=== PATIENT | male | born 1960 | race Caucasian/White ===

== ENCOUNTER 2019-10-14 09:31 | Emergency (ER) | payer OTHER ==
--- NOTE | 2019-10-14 09:43 | ED ---
Chest Pain HPI - General Chief Complaint: Chest Pain Stated Complaint: chest pain Time Seen by Provider: 10/14/19 09:31 Source: patient, EMS, RN notes reviewed, old records reviewed Mode of arrival: EMS Limitations: no limitations - History of Present Illness Initial Comments: This is a 51-year-old male with a history of hypertension history of DC with stents also history of hemorrhagic CVA who presents with complaints of 2-3 days of left-sided sharp chest pain tearing in nature also currently 6/10 in severity he states it does get worse it does get somewhat worse with certain positional changes. States also his blood pressure is been elevated his been taking his medications. No recent changes in the blood pressure medication. No fevers chills cough sweats or other symptoms at this time he is a former smoker. MD Complaint: chest pain - Related Data Home Medications Medication Instructions Recorded Confirmed Aspirin EC [Ecotrin Low Dose] 81 mg PO DAILY 10/14/19 10/14/19 Atorvastatin [Lipitor] 40 mg PO HS 10/14/19 10/14/19 Carvedilol [Coreg] 50 mg PO BID 10/14/19 10/14/19 Furosemide [Lasix] 20 mg PO DAILY 10/14/19 10/14/19 Pantoprazole Sodium [Protonix] 40 mg PO DAILY 10/14/19 10/14/19 Spironolactone [Aldactone] 25 mg PO DAILY 10/14/19 10/14/19 Valsartan 320 mg PO DAILY 10/14/19 10/14/19 hydrALAZINE HCL [Apresoline] 25 mg PO TID 10/14/19 10/14/19 Allergies Allergy/AdvReac Type Severity Reaction Status Date / Time No Known Allergies Allergy Verified 10/14/19 10:39 Review of Systems ROS Statement: Those systems with pertinent positive or pertinent negative responses have been documented in the HPI. ROS Other: All systems not noted in ROS Statement are negative. 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 Absent: scleral icterus, conjunctival injection, periorbital swelling ENT exam: Present: normal exam, mucous membranes moist Neck exam: Present: normal inspection, full ROM, other (No stridor JVD or bruits). Absent: tenderness, meningismus, lymphadenopathy Respiratory exam: Present: normal lung sounds bilaterally, chest wall tenderness (Tenderness palpation on the left costal sternal margin the patient states this is different than the other pain he complains of there is no step-off or crepitation.). Absent: respiratory distress, wheezes, rales, rhonchi, stridor Cardiovascular Exam: Present: normal rhythm, tachycardia, normal heart sounds. Absent: systolic murmur, diastolic murmur, rubs, gallop, clicks GI/Abdominal exam: Present: soft, normal bowel sounds. Absent: distended, tenderness, guarding, rebound, rigid, bruit, pulsatile mass Extremities exam: Present: normal inspection, full ROM, normal capillary refill. Absent: tenderness, pedal edema, joint swelling, calf tenderness Back exam: Present: normal inspection Neurological exam: Present: alert, oriented X3, CN II-XII intact Psychiatric exam: Present: normal affect, normal mood Skin exam: Present: warm, dry, intact, normal color. Absent: rash Course Vital Signs 10/14/19 10/14/19 10/14/19 09:32 09:34 09:38 Temperature 98.7 F Pulse Rate 114 H 122 H Respiratory 18 20 Rate Blood Pressure 224/127 O2 Sat by Pulse 96 98 Oximetry 10/14/19 10/14/19 10/14/19 10:00 10:28 10:30 Temperature Pulse Rate 99 92 Respiratory 20 Rate Blood Pressure 224/127 178/128 178/128 O2 Sat by Pulse 96 97 Oximetry 10/14/19 10/14/19 10/14/19 11:00 11:30 11:58 Temperature Pulse Rate 98 96 89 Respiratory 20 20 Rate Blood Pressure 209/128 202/124 185/115 O2 Sat by Pulse 97 96 96 Oximetry 10/14/19 10/14/19 10/14/19 11:59 12:00 12:11 Temperature Pulse Rate 86 89 Respiratory 18 Rate Blood Pressure 185/115 185/115 164/107 O2 Sat by Pulse 98 96 Oximetry 10/14/19 10/14/19 10/14/19 12:30 12:43 13:00 Temperature Pulse Rate 98 98 105 H Respiratory 18 Rate Blood Pressure 164/107 166/95 166/95 O2 Sat by Pulse 95 98 95 Oximetry 10/14/19 13:09 Temperature Pulse Rate 105 H Respiratory Rate Blood Pressure 166/95 O2 Sat by Pulse 95 Oximetry Chest Pain MDM - MDM I did review the imaging and report no acute findings. No change in the status of the aorta. Patient did get improvement with a blood pressure medications as well as pain control. Patient's presentation consistent with chest wall pain Disposition Clinical Impression: Costochondritis, Chest wall syndrome, Hypertension Disposition: HOME SELF-CARE Condition: Good Instructions (If sedation given, give patient instructions): Costochondritis (ED), Chest Pain (ED), Hypertension (ED) Is patient prescribed a controlled substance at d/c from ED?: No Referrals: [facility],Clinic [Primary Care Provider] - 1-2 days
[2019-10-14 10:00] LABS: Basophils % (A) 0 %; Eosinophils # (A) 0.1 k/uL (0-0.7); Eosinophils % (A) 1 %; HCT 48.8 % (39.0-53.0); HGB 16.6 gm/dL (13.0-17.5); Lymphocytes # (A) 1.8 k/uL (1.0-4.8); Lymphocytes % (A) 23 %; MCH 31.4 pg (25.0-35.0); MCHC 34.1 g/dL (31.0-37.0); MCV 92.2 fL (80.0-100.0); Monocytes # (A) 0.8 k/uL (0-1.0); Monocytes % (A) 10 %; Neutrophils % (A) 63 %; Platelet Count 134 k/uL (150-450); RBC 5.29 m/uL (4.30-5.90); RDW 13.9 % (11.5-15.5); WBC 7.9 k/uL (3.8-10.6)
[2019-10-14 10:18] LABS: ALT 92 U/L (4-49); AST 77 U/L (17-59); African American GFR (CKD) >90 (>60 ml/min/1.73 sqM); Albumin 4.1 g/dL (3.5-5.0); Alkaline Phosphatase 81 U/L (38-126); Anion Gap 8 mmol/L; Blood Urea Nitrogen 20 mg/dL (9-20); Calcium 9.2 mg/dL (8.4-10.2); Carbon Dioxide 22 mmol/L (22-30); Chloride 101 mmol/L (98-107); Creatine Kinase 215 U/L (55-170); Glucose 115 mg/dL (74-99); Magnesium 1.6 mg/dL (1.6-2.3); Non-African American GFR(CKD) 83 (>60 ml/min/1.73 sqM); Sodium 131 mmol/L (137-145); Total Bilirubin 1.2 mg/dL (0.2-1.3); Total Protein 7.7 g/dL (6.3-8.2)
--- NOTE | 2019-10-14 10:20 | XR ---
EXAMINATION TYPE: XR chest 1V portable DATE OF EXAM: 10/14/2019 HISTORY: Shortness of breath. COMPARISON: None. TECHNIQUE: Single view of the chest is submitted. FINDINGS: Demonstrated are scattered senescent parenchymal change. There is no evidence for focal infiltrate. The heart is stable. Hilar and mediastinal structures are within normal limits. Degenerative changes are seen of the dorsal spine. IMPRESSION: 1. Chronic changes without evidence for acute pulmonary disease.
[2019-10-14 10:30] LABS: Potassium 5.8 mmol/L (3.5-5.1)
[2019-10-14] MEDS ORDERED: METOPROLOL TARTRATE 5 MG/5 ML VIAL IVP STA (10:30)
[2019-10-14 10:31] LABS: D-Dimer 0.35 mg/L FEU (<0.60); Partial Thromboplastin Time 23.7 sec (22.0-30.0)
--- NOTE | 2019-10-14 10:34 | CT ---
EXAMINATION TYPE: CT angio thor/abd pel aorta DATE OF EXAM: 10/14/2019 COMPARISON: None HISTORY: Chest pain, possible dissection CT DLP: 1519.5 mGycm CONTRAST: CTA thoracic and abdominal aorta with 3-D reconstruction is performed and without and with IV Contras t, patient injected with 100 mL of Isovue 370. Contrast CTA of the thoracic and abdominal aorta was performed from the lung apex through the base of the pelvis. 3-D reconstruction imaging obtained at a separate workstation. CT Chest: THORACIC AORTA: Thoracic aortic aneurysm measuring 5 cm AP dimension. No dissection or mediastinal he matoma. Mild atheromatous changes are seen. LUNGS: The lungs are clear and free of infiltrate or atelectasis. No pulmonary nodule or mass is det ected. No pleural effusion or CT evidence of interstitial lung disease. MEDIASTINUM: The heart is not enlarged. No evidence for mediastinal mass or adenopathy. HILAR STRUCTURES: No evidence for mass. No hilar adenopathy is appreciated. OTHER: No significant abnormality. CONTRAST CT ABDOMEN AND PELVIS ABDOMINAL AORTA: No evidence for abdominal aortic aneurysm. No dissection. Iliac vessels are symmet jayden and patent. LIVER/GB- No significant abnormality is seen. Mild hepatic steatosis. PANCREAS- No significant abnormality is seen. SPLEEN- No significant abnormality is seen. ADRENALS- No significant abnormality is seen. KIDNEYS/BLADDER-renal cystic changes identified. BOWEL- No Significant abnormality GENITAL ORGANS: No gross abnormality seen. LYMPH NODES- No greater than 1cm abdominal or pelvic lymph nodes are appreciated. OSSEOUS STRUCTURES- No significant abnormality is seen. OTHER- No significant abnormality is seen. IMPRESSION- No evidence for dissection. Ascending thoracic aortic aneurysm.
[2019-10-14] MEDS ORDERED: hydrALAZINE HCL 20 MG/ML 1 ML VIAL IVP STA ×2 (11:11→12:01)
[2019-10-14] MEDS ORDERED: KETOROLAC 30 MG/ML 1 ML VIAL IVP STA (11:11)
[2019-10-14 12:00] VITALS: RESP 18
[2019-10-14 13:29] VITALS: BP 160/103; PULSE 107; TEMP 97.9
== END 2019-10-14 13:35 | disposition home or self-care (01) ==
LOC: EC 09:31
DX: M94.0 Chondrocostal junction syndrome [Tietze] (principal); I10 Essential (primary) hypertension; I25.2 Old myocardial infarction; Z79.82 Long term (current) use of aspirin; Z79.02 Long term (current) use of antithrombotics/antiplatelets; Z79.899 Other long term (current) drug therapy; Z87.891 Personal history of nicotine dependence; Z86.73 Personal history of transient ischemic attack (TIA), and cerebral infarction without residual deficits; Z95.5 Presence of coronary angioplasty implant and graft
CPT/HCPCS: 36415; 93005; 85379; 83880; 80053; 82550; 83690; 83735; 84484; 85025; 85610; 85730; 71045; 71275; 74174; 99285; 96374; 96375 ×2; 96376; J0360; J1885; Q9967

== ENCOUNTER 2021-08-05 12:47 | Emergency (ER) | payer OTHER ==
[2021-08-05 14:35] LABS: Amphetamine Screen,Urine Not Detected (NotDetected); Barbiturate Screen,Urine Not Detected (NotDetected); Benzodiazepines Screen,Urine Not Detected (NotDetected); Cocaine Screen,Urine Not Detected (NotDetected); Methadone Screen, Urine Not Detected (NotDetected); Opiate Screen,Urine Not Detected (NotDetected); Oxycodone Screen, Urine Not Detected (NotDetected); Phencyclidine Screen,Urine Not Detected (NotDetected); Tricyclic Antidepressant,Urine Not Detected (NotDetected); Urn Cannabinoid Scrn Detected (NotDetected)
--- NOTE | 2021-08-05 14:55 | ED ---
Psych HPI <Rafael Alicea - Last Filed: 08/05/21 16:19> - General Source: patient, RN notes reviewed Mode of arrival: ambulatory Limitations: no limitations <Antonio Lees - Last Filed: 08/05/21 16:55> - General Chief Complaint: Psychiatric Symptoms Stated Complaint: Mental health Time Seen by Provider: 08/05/21 12:52 - History of Present Illness Initial Comments: 61-year-old male presents emergency Department with police for psychiatric evaluation. Patient states he severely depressed, suicidal. He has not attempted to harm himself in any way. Patient states this point where he does not want to live anymore. Patient does not currently see anybody for this. Patient states he needs help. Denies any illicit drug use or alcohol abuse. Patient has no physical complaints he does take medications for hypertension. (Antonio Lees) - Related Data Home Medications Medication Instructions Recorded Confirmed Aspirin EC [Ecotrin Low Dose] 81 mg PO DAILY 10/14/19 08/05/21 Atorvastatin [Lipitor] 40 mg PO HS 10/14/19 08/05/21 Carvedilol [Coreg] 50 mg PO BID 10/14/19 08/05/21 Furosemide [Lasix] 20 mg PO DAILY 10/14/19 08/05/21 Pantoprazole Sodium [Protonix] 40 mg PO DAILY 10/14/19 08/05/21 Spironolactone [Aldactone] 25 mg PO DAILY 10/14/19 08/05/21 Valsartan 320 mg PO DAILY 10/14/19 08/05/21 hydrALAZINE HCL [Apresoline] 25 mg PO TID 10/14/19 08/05/21 Allergies Allergy/AdvReac Type Severity Reaction Status Date / Time No Known Allergies Allergy Verified 08/05/21 15:57 Review of Systems ROS Other: All systems not noted in ROS Statement are negative. <Rafael Alicea - Last Filed: 08/05/21 16:19> ROS Other: All systems not noted in ROS Statement are negative. <Antonio Lees - Last Filed: 08/05/21 16:55> ROS Statement: Those systems with pertinent positive or pertinent negative responses have been documented in the HPI. 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 Absent: scleral icterus, conjunctival injection, periorbital swelling ENT exam: Present: normal exam, mucous membranes moist Neck exam: Present: normal inspection, full ROM. Absent: tenderness, meningismus, lymphadenopathy Respiratory exam: Present: normal lung sounds bilaterally. Absent: respiratory distress, wheezes, rales, rhonchi, stridor Cardiovascular Exam: Present: regular rate, normal rhythm, normal heart sounds. Absent: systolic murmur, diastolic murmur, rubs, gallop, clicks Neurological exam: Present: alert, oriented X3, CN II-XII intact Psychiatric exam: Present: depressed, suicidal ideation <Antonio Lees - Last Filed: 08/05/21 16:55> Course Vital Signs 08/05/21 12:48 Temperature 97.9 F Pulse Rate 63 Respiratory 18 Rate Blood Pressure 150/89 O2 Sat by Pulse 99 Oximetry Medical Decision Making - Lab Data Result diagrams: 08/05/21 15:34 08/05/21 15:34 <Rafael Alicea - Last Filed: 08/05/21 16:19> - Lab Data Result diagrams: 08/05/21 15:34 08/05/21 15:34 <Antonio Lees - Last Filed: 08/05/21 16:55> - Medical Decision Making Patient evaluated by EPS and felt to require inpatient psychiatric evaluation treatment. I did complete a clinical certification on this patient with depression and increased suicidal thoughts and a prior attempt in 2009. Patient will likely be transferred for further psychiatric evaluation treatment. (Rafael Alicea) - Lab Data Lab Results 08/05/21 08/05/21 08/05/21 Range/Units 13:28 13:28 15:34 WBC 7.7 (3.8-10.6) k/uL RBC 4.71 (4.30-5.90) m/uL Hgb 15.5 (13.0-17.5) gm/dL Hct 47.4 (39.0-53.0) % MCV 100.7 H (80.0-100.0) fL MCH 32.9 (25.0-35.0) pg MCHC 32.6 (31.0-37.0) g/dL RDW 15.0 (11.5-15.5) % Plt Count 124 L (150-450) k/uL MPV 11.4 Neutrophils % 76 % Lymphocytes % 16 % Monocytes % 5 % Eosinophils % 1 % Basophils % 0 % Neutrophils # 5.9 (1.3-7.7) k/uL Lymphocytes # 1.3 (1.0-4.8) k/uL Monocytes # 0.4 (0-1.0) k/uL Eosinophils # 0.1 (0-0.7) k/uL Basophils # 0.0 (0-0.2) k/uL Macrocytosis Slight Sodium (137-145) mmol/L Potassium (3.5-5.1) mmol/L Chloride (98-107) mmol/L Carbon Dioxide (22-30) mmol/L Anion Gap mmol/L BUN (9-20) mg/dL Creatinine (0.66-1.25) mg/dL Est GFR (CKD-EPI)AfAm (>60 ml/min/1.73 sqM) Est GFR (CKD-EPI)NonAf (>60 ml/min/1.73 sqM) Glucose (74-99) mg/dL Calcium (8.4-10.2) mg/dL Total Bilirubin (0.2-1.3) mg/dL AST (17-59) U/L ALT (4-49) U/L Alkaline Phosphatase (38-126) U/L Total Protein (6.3-8.2) g/dL Albumin (3.5-5.0) g/dL Urine Color Light Yellow Urine Appearance Cloudy (Clear) Urine pH 5.0 (5.0-8.0) Ur Specific [place] 1.023 (1.001-1.035) Urine Protein Negative (Negative) Urine Glucose (UA) Negative (Negative) Urine Ketones Negative (Negative) Urine Blood Negative (Negative) Urine Nitrite Negative (Negative) Urine Bilirubin Negative (Negative) Urine Urobilinogen <2.0 (<2.0) mg/dL Ur Leukocyte Esterase Negative (Negative) Urine WBC <1 (0-5) /hpf Ur Squamous Epith Cells <1 (0-4) /hpf Uric Acid Crystals Occasional H (None) /hpf Amorphous Sediment Rare H (None) /hpf Urine Opiates Screen Not Detected (NotDetected) Ur Oxycodone Screen Not Detected (NotDetected) Urine Methadone Screen Not Detected (NotDetected) Ur Propoxyphene Screen Not Detected (NotDetected) Ur Barbiturates Screen Not Detected (NotDetected) U Tricyclic Antidepress Not Detected (NotDetected) Ur Phencyclidine Scrn Not Detected (NotDetected) Ur Amphetamines Screen Not Detected (NotDetected) U Methamphetamines Scrn Not Detected (NotDetected) U Benzodiazepines Scrn Not Detected (NotDetected) Urine Cocaine Screen Not Detected (NotDetected) U Marijuana (THC) Screen Detected H (NotDetected) Coronavirus (PCR) (Not Detectd) 08/05/21 08/05/21 Range/Units 15:34 15:34 WBC (3.8-10.6) k/uL RBC (4.30-5.90) m/uL Hgb (13.0-17.5) gm/dL Hct (39.0-53.0) % MCV (80.0-100.0) fL MCH (25.0-35.0) pg MCHC (31.0-37.0) g/dL RDW (11.5-15.5) % Plt Count (150-450) k/uL MPV Neutrophils % % Lymphocytes % % Monocytes % % Eosinophils % % Basophils % % Neutrophils # (1.3-7.7) k/uL Lymphocytes # (1.0-4.8) k/uL Monocytes # (0-1.0) k/uL Eosinophils # (0-0.7) k/uL Basophils # (0-0.2) k/uL Macrocytosis Sodium 135 L (137-145) mmol/L Potassium 5.3 H (3.5-5.1) mmol/L Chloride 105 (98-107) mmol/L Carbon Dioxide 23 (22-30) mmol/L Anion Gap 7 mmol/L BUN 72 H (9-20) mg/dL Creatinine 1.63 H (0.66-1.25) mg/dL Est GFR (CKD-EPI)AfAm 52 (>60 ml/min/1.73 sqM) Est GFR (CKD-EPI)NonAf 45 (>60 ml/min/1.73 sqM) Glucose 126 H (74-99) mg/dL Calcium 9.8 (8.4-10.2) mg/dL Total Bilirubin 0.3 (0.2-1.3) mg/dL AST 22 (17-59) U/L ALT 21 (4-49) U/L Alkaline Phosphatase 66 (38-126) U/L Total Protein 6.5 (6.3-8.2) g/dL Albumin 3.8 (3.5-5.0) g/dL Urine Color Urine Appearance (Clear) Urine pH (5.0-8.0) Ur Specific [place] (1.001-1.035) Urine Protein (Negative) Urine Glucose (UA) (Negative) Urine Ketones (Negative) Urine Blood (Negative) Urine Nitrite (Negative) Urine Bilirubin (Negative) Urine Urobilinogen (<2.0) mg/dL Ur Leukocyte Esterase (Negative) Urine WBC (0-5) /hpf Ur Squamous Epith Cells (0-4) /hpf Uric Acid Crystals (None) /hpf Amorphous Sediment (None) /hpf Urine Opiates Screen (NotDetected) Ur Oxycodone Screen (NotDetected) Urine Methadone Screen (NotDetected) Ur Propoxyphene Screen (NotDetected) Ur Barbiturates Screen (NotDetected) U Tricyclic Antidepress (NotDetected) Ur Phencyclidine Scrn (NotDetected) Ur Amphetamines Screen (NotDetected) U Methamphetamines Scrn (NotDetected) U Benzodiazepines Scrn (NotDetected) Urine Cocaine Screen (NotDetected) U Marijuana (THC) Screen (NotDetected) Coronavirus (PCR) Not Detected (Not Detectd) Disposition Is patient prescribed a controlled substance at d/c from ED?: No <Rafael Alicea - Last Filed: 08/05/21 16:19> Time of Disposition: 16:55 <Antonio Lees - Last Filed: 08/05/21 16:55> Clinical Impression: Depression, Suicidal ideation Disposition: TRANSFER TO PSYCH HOSP/UNIT Condition: Stable Referrals: [facility],Clinic [Primary Care Provider] - 1-2 days
[2021-08-05 15:52] LABS: Amorphous Sediment,Urine Rare /hpf; Appearance,Urine Cloudy (Clear); Bilirubin,Urine Negative (Negative); Blood,Urine Negative (Negative); Color,Urine Light Yellow; Glucose,Urine (UA) Negative (Negative); Ketones,Urine Negative (Negative); Leukocyte Esterase,Urine Negative (Negative); Nitrite,Urine Negative (Negative); Protein,Urine Negative (Negative); Specific Gravity,Urine 1.023 (1.001-1.035); Squamous Epithelial Cell,Urine <1 /hpf (0-4); Uric Acid Crystals,Urine Occasional /hpf; Urobilinogen,Urine <2.0 mg/dL (<2.0); WBC,Urine <1 /hpf (0-5)
--- NOTE | 2021-08-05 15:55 | XR ---
EXAMINATION TYPE: XR chest 1V portable DATE OF EXAM: 08/05/2021 COMPARISON: 10/14/2019 HISTORY: Chest pain TECHNIQUE: FINDINGS: Heart and mediastinum are normal. Lungs are clear. Diaphragm is normal. Bony thorax is inta ct. Pulmonary vascularity is normal. IMPRESSION: Normal chest. No change.
[2021-08-05 16:04] LABS: Albumin 3.8 g/dL (3.5-5.0); Calcium 9.8 mg/dL (8.4-10.2); Potassium 5.3 mmol/L (3.5-5.1); Total Bilirubin 0.3 mg/dL (0.2-1.3); Total Protein 6.5 g/dL (6.3-8.2)
[2021-08-05 16:14] LABS: Basophils % (A) 0 %; Eosinophils # (A) 0.1 k/uL (0-0.7); Eosinophils % (A) 1 %; HCT 47.4 % (39.0-53.0); HGB 15.5 gm/dL (13.0-17.5); Lymphocytes # (A) 1.3 k/uL (1.0-4.8); Lymphocytes % (A) 16 %; MCH 32.9 pg (25.0-35.0); MCHC 32.6 g/dL (31.0-37.0); MCV 100.7 fL (80.0-100.0); Macrocytosis Slight; Mean Platelet Volume 11.4; Monocytes # (A) 0.4 k/uL (0-1.0); Monocytes % (A) 5 %; Neutrophils # (A) 5.9 k/uL (1.3-7.7); Neutrophils % (A) 76 %; Platelet Count 124 k/uL (150-450); RBC 4.71 m/uL (4.30-5.90); WBC 7.7 k/uL (3.8-10.6)
[2021-08-05] MEDS ORDERED: SODIUM CHLORIDE 0.9% 1,000 ML IV ONE (19:53)
[2021-08-05 21:33] LABS: Albumin 3.4 g/dL (3.5-5.0); Potassium 5.1 mmol/L (3.5-5.1); Total Bilirubin 0.3 mg/dL (0.2-1.3)
[2021-08-06] MEDS: carvediloL 12.5 MG TAB PO SCH (10:13)
[2021-08-06] MEDS: VALSARTAN 160 MG TAB PO SCH (10:13)
[2021-08-06] MEDS: hydrALAZINE HCL 25 MG TAB PO SCH (10:14)
[2021-08-06] MEDS: SPIRONOLACTONE 25 MG TAB PO SCH (10:14)
[2021-08-06] MEDS: FUROSEMIDE 20 MG TAB PO SCH (10:14)
[2021-08-06] MEDS: ASPIRIN 81 MG PO SCH (10:14)
[2021-08-06] MEDS ORDERED: SODIUM CHLORIDE 0.9% 2,000 ML IV ONE (10:38)
[2021-08-06 12:31] LABS: Calcium 8.2 mg/dL (8.4-10.2); Potassium 4.4 mmol/L (3.5-5.1)
[2021-08-06] MEDS ORDERED: ATORVASTATIN 40 MG TAB PO SCH (21:00)
[2021-08-06 22:47] VITALS: RESP 16
[2021-08-07 08:22] VITALS: BP 158/79; PULSE 70; TEMP 97.3
[2021-08-07] MEDS: SPIRONOLACTONE 25 MG TAB PO SCH (08:23)
[2021-08-07] MEDS: FUROSEMIDE 20 MG TAB PO SCH ×2 (08:23→08:26)
[2021-08-07] MEDS: carvediloL 12.5 MG TAB PO SCH (08:23)
[2021-08-07] MEDS: hydrALAZINE HCL 25 MG TAB PO SCH ×4 (08:24→08:58)
[2021-08-07] MEDS: ASPIRIN 81 MG PO SCH (08:24)
[2021-08-07] MEDS: VALSARTAN 160 MG TAB PO SCH (08:33)
== END 2021-08-07 11:07 ==
LOC: EC 12:47
DX: R45.851 Suicidal ideations (principal); F32.A Depression, unspecified; I10 Essential (primary) hypertension; Z79.82 Long term (current) use of aspirin; Z79.899 Other long term (current) drug therapy
CPT/HCPCS: 36415; 71045; 80048; 80053; 80306; 81001; 82075; 85025; 87635; 93005; 96360; 99285

== ENCOUNTER 2024-09-17 10:14 | Emergency (ER) | payer OTHER ==
[2024-09-17 11:06] LABS: Basophils # (A) 0.1 k/uL (0-0.2); Basophils % (A) 1 %; Eosinophils # (A) 0.1 k/uL (0-0.7); Eosinophils % (A) 1 %; HCT 54.3 % (39.0-53.0); HGB 17.3 gm/dL (13.0-17.5); Lymphocytes % (A) 20 %; MCH 30.1 pg (25.0-35.0); MCHC 31.8 g/dL (31.0-37.0); MCV 94.5 fL (80.0-100.0); Mean Platelet Volume 10.5; Monocytes # (A) 0.7 k/uL (0-1.0); Monocytes % (A) 7 %; Neutrophils # (A) 6.9 k/uL (1.3-7.7); Neutrophils % (A) 70 %; Platelet Count 180 k/uL (150-450); RBC 5.75 m/uL (4.30-5.90); WBC 9.8 k/uL (3.8-10.6)
[2024-09-17 11:16] LABS: ALT 17 U/L (4-49); AST 24 U/L (17-59); African American GFR (CKD) 42 (>60 ml/min/1.73 sqM); Albumin 4.1 g/dL (3.5-5.0); Alkaline Phosphatase 64 U/L (38-126); Blood Urea Nitrogen 37 mg/dL (9-20); Calcium 9.6 mg/dL (8.4-10.2); Carbon Dioxide 25 mmol/L (22-30); Chloride 100 mmol/L (98-107); Glucose 120 mg/dL (74-99); INR 1.1 (<1.2); Magnesium 2.2 mg/dL (1.6-2.3); Non-African American GFR(CKD) 37 (>60 ml/min/1.73 sqM); Partial Thromboplastin Time 22.8 sec (22.0-30.0); Potassium 4.1 mmol/L (3.5-5.1); Prothrombin Time 11.6 sec (10.0-12.5)
--- NOTE | 2024-09-17 11:49 | XR ---
EXAMINATION TYPE: XR chest 2V DATE OF EXAM: 09/17/2024 CLINICAL INDICATION: Male, 64 years old with history of difficulty breathing, TECHNIQUE: Frontal and lateral views of the chest are obtained. COMPARISON: Chest x-ray August 05, 2021 FINDINGS: There is no focal air space opacity, pleural effusion, or pneumothorax seen. Mild Cardiome ulises is redemonstrated with atherosclerotic thoracic aorta. Overlying EKG leads are seen on current s tudy. The osseous structures are intact. IMPRESSION: Mild cardiomegaly without acute pulmonary process. [facility], , 09/17/2024 11:47 AM
[2024-09-17 13:00] LABS: Anion Gap 9 mmol/L; Sodium 134 mmol/L (137-145)
--- NOTE | 2024-09-17 13:03 | ED ---
General Adult HPI - General Chief complaint: Shortness of Breath Stated complaint: SOB Time Seen by Provider: 09/17/24 10:35 Source: patient, EMS, RN notes reviewed, old records reviewed Mode of arrival: EMS Limitations: no limitations - History of Present Illness Initial comments: Patient is a 64-year-old male who was sent in by the [place] clinic over concern for T wave inversions seen on his EKG. Does have a history of NSTEMI but no cardiac stents. Also history of hypertension. Recently moved here and was establishing care. Screening EKG at the other facility showed T wave inversions and he was sent here for further evaluation. Denies chest pain or shortness of breath. Denies abdominal pain, nausea, vomiting. Has no other acute complaints at this time. Presents for further evaluation. - Related Data Home Medications Medication Instructions Recorded Confirmed Aspirin EC [Ecotrin Low Dose] 81 mg PO DAILY 10/14/19 08/06/21 Atorvastatin [Lipitor] 40 mg PO HS 10/14/19 08/06/21 Furosemide [Lasix] 20 mg PO DAILY 10/14/19 08/06/21 Spironolactone [Aldactone] 25 mg PO DAILY 10/14/19 08/06/21 Valsartan 320 mg PO DAILY 10/14/19 08/06/21 carvediloL [Coreg] 50 mg PO BID 10/14/19 08/06/21 hydrALAZINE HCL [Apresoline] 25 mg PO TID 10/14/19 08/06/21 Allergies Allergy/AdvReac Type Severity Reaction Status Date / Time No Known Allergies Allergy Verified 09/17/24 10:25 Review of Systems ROS Statement: Those systems with pertinent positive or pertinent negative responses have been documented in the HPI. Review of Systems: CONST: Denies fever EYES: Denies blurry vision ENT: Denies nasal congestion C/V: Denies Chest pain RESP: Denies shortness of breath GI: Denies abdominal pain : Denies dysuria SKIN: Denies rash. MSK: Denies joint pain. NEURO: Denies headache ROS Other: All systems not noted in ROS Statement are negative. 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 HEAD: Normal with no signs of head trauma. EYES: PERRLA, EOMI, conjunctiva normal, no discharge. ENT: Hearing grossly intact, normal oropharynx. RESPIRATORY: Clear breath sounds bilaterally. No wheezes, rales, or rhonchi. C/V: Regular rate and rhythm. S1 and S2 auscultated, no edema, peripheral pulses 2+ and intact throughout ABD: Abd is soft, nontender, nondistended EXT: Normal range of motion, no obvious deformity SKIN: No rashes or lesions observed on exposed skin. NEURO: Alert and oriented x 4. Cranial nerves II-XII intact. No focal sensory or strength deficits. Limitations: no limitations Course Vital Signs 09/17/24 09/17/24 09/17/24 10:16 10:29 10:54 Temperature 97.8 F Pulse Rate 102 H 92 Pulse Rate [ 65 Pulse Oximetery ] Respiratory 17 17 Rate Blood Pressure 188/104 157/86 O2 Sat by Pulse 98 97 Oximetry 09/17/24 13:08 Temperature 98 F Pulse Rate 90 Pulse Rate [ Pulse Oximetery ] Respiratory 18 Rate Blood Pressure 167/116 O2 Sat by Pulse 95 Oximetry Medical Decision Making - Medical Decision Making Was pt. sent in by a medical professional or institution (JESSENIA Ross, [employer], urgent care, hospital, or usp...) When possible be specific @ -No Did you speak to anyone other than the patient for history (EMS, parent, family, police, friend...)? What history was obtained from this source @ -No Did you review nursing and triage notes (agree or disagree)? Why? @ -I reviewed and agree with nursing and triage notes Were old charts reviewed (outside hosp., previous admission, EMS record, old EKG, old radiological studies, urgent care reports/EKG's, usp records)? Report findings @ -No old charts were reviewed Differential Diagnosis (chest pain, altered mental status, abdominal pain women, abdominal pain men, vaginal bleeding, weakness, fever, dyspnea, syncope, headache, dizziness, GI bleed, back pain, seizure, CVA, palpatations, mental health, musculoskeletal)? @ -ACS, electrolyte abnormality, CHF. This list is not all inclusive. EKG interpreted by me (3pts min.). @ -As above X-rays interpreted by me (1pt min.). @ -Chest x-ray reveals no obvious acute cardiopulmonary process. CT interpreted by me (1pt min.). @ -None done U/S interpreted by me (1pt. min.). @ -None done What testing was considered but not performed or refused? (CT, X-rays, U/S, labs)? Why? @ -None What meds were considered but not given or refused? Why? @ -None Did you discuss the management of the patient with other professionals (professionals i.e. DrKori, PA, [employer]ER, lab, RT, psych nurse, home health care social worker, clerk typist, teacher, credit risk officer, catalytic case operator)? Give summary @ -No Was smoking cessation discussed for >3mins.? @ -No Was critical care preformed (if so, how long)? @ -No Were there social determinants of health that impacted care today? How? (Homelessness, low income, unemployed, alcoholism, drug addiction, transportation, low edu. Level, literacy, decrease access to med. care, custodial, rehab)? @ -No Was there de-escalation of care discussed even if they declined (Discuss DNR or withdrawal of care, Hospice)? DNR status @ -No What co-morbidities impacted this encounter? (DM, HTN, Smoking, COPD, CAD, Cancer, CVA, ARF, Chemo, Hep., AIDS, mental health diagnosis, sleep apnea, morbid obesity)? @ -None Was patient admitted / discharged? Hospital course, mention meds given and route, prescriptions, significant lab abnormalities, going to [place] and other [facility] [place] info. @ -Based on patient's presentation and physical exam, presents for EKG changes seen on outpatient EKG. He has no other symptoms at this time. Will obtain cardiac workup including agreement the plan. Vital signs are within acceptable limits. EKG does show T wave inversions in aVL on the lateral precordial leads which do seem new when compared with prior EKG from July 2021. Laboratory studies returned remarkable for elevated BUN and creatinine when compared with previous, however it is not double his baseline. Possibly representing mild JOHN on CKD. Troponin is elevated to 0 .038. BNP slightly elevated 2300. I discussed results with the patient. I recommended admission. He will be given 324 mg of aspirin. Patient declines. He would like to leave AGAINST MEDICAL ADVICE. I will provide him with follow-up for cardiology but recommended that he remain in the ER. He can always return if any worsening symptoms. He was in agreement this plan. The patient was apprised of the potential risks of leaving the hospital AGAINST MEDICAL ADVICE, including serious complications, permanent disability, and . At the time of my interview the patient, the patient was alert, oriented, and capable. Patient signed AMA form, which was witnessed and signed by nursing staff, and placed in patient's chart. I urged the patient to return to the hospital as soon as possible to complete evaluation and treatment. Undiagnosed new problem with uncertain prognosis? @ -No Drug Therapy requiring intensive monitoring for toxicity (Heparin, Nitro, Insulin, Cardizem)? @ -No Were any procedures done? @ -No Diagnosis/symptom? @ -Elevated troponin, acute EKG changes, left AGAINST MEDICAL ADVICE Acute, or Chronic, or Acute on Chronic? @ -Acute Uncomplicated (without systemic symptoms) or Complicated (systemic symptoms)? @ -complicated Side effects of treatment? @ -No Exacerbation, Progression, or Severe Exacerbation? @ -No Poses a threat to life or bodily function? How? (Chest pain, [place], [place], pneumonia, PE, COPD, DKA, ARF, appy, cholecystitis, CVA, Diverticulitis, Homicidal, Suicidal, threat to staff... and all critical care pts) @ -Potentially, yes - Lab Data Result diagrams: 09/17/24 10:54 09/17/24 10:54 Lab Results 09/17/24 09/17/24 09/17/24 Range/Units 10:54 10:54 10:54 WBC 9.8 (3.8-10.6) k/uL RBC 5.75 (4.30-5.90) m/uL Hgb 17.3 (13.0-17.5) gm/dL Hct 54.3 H (39.0-53.0) % MCV 94.5 (80.0-100.0) fL MCH 30.1 (25.0-35.0) pg MCHC 31.8 (31.0-37.0) g/dL RDW 15.0 (11.5-15.5) % Plt Count 180 (150-450) k/uL MPV 10.5 Neutrophils % 70 % Lymphocytes % 20 % Monocytes % 7 % Eosinophils % 1 % Basophils % 1 % Neutrophils # 6.9 (1.3-7.7) k/uL Lymphocytes # 2.0 (1.0-4.8) k/uL Monocytes # 0.7 (0-1.0) k/uL Eosinophils # 0.1 (0-0.7) k/uL Basophils # 0.1 (0-0.2) k/uL PT 11.6 (10.0-12.5) sec INR 1.1 (<1.2) APTT 22.8 (22.0-30.0) sec Sodium 134 L (137-145) mmol/L Potassium 4.1 (3.5-5.1) mmol/L Chloride 100 (98-107) mmol/L Carbon Dioxide 25 (22-30) mmol/L Anion Gap 9 mmol/L BUN 37 H (9-20) mg/dL Creatinine 1.91 H (0.66-1.25) mg/dL Est GFR (CKD-EPI)AfAm 42 (>60 ml/min/1.73 sqM) Est GFR (CKD-EPI)NonAf 37 (>60 ml/min/1.73 sqM) Glucose 120 H (74-99) mg/dL Calcium 9.6 (8.4-10.2) mg/dL Magnesium 2.2 (1.6-2.3) mg/dL Total Bilirubin 1.0 (0.2-1.3) mg/dL AST 24 (17-59) U/L ALT 17 (4-49) U/L Alkaline Phosphatase 64 (38-126) U/L Troponin I (0.000-0.034) ng/mL NT-Pro-B Natriuret Pep 2330 pg/mL Total Protein 7.0 (6.3-8.2) g/dL Albumin 4.1 (3.5-5.0) g/dL 09/17/24 Range/Units 10:54 WBC (3.8-10.6) k/uL RBC (4.30-5.90) m/uL Hgb (13.0-17.5) gm/dL Hct (39.0-53.0) % MCV (80.0-100.0) fL MCH (25.0-35.0) pg MCHC (31.0-37.0) g/dL RDW (11.5-15.5) % Plt Count (150-450) k/uL MPV Neutrophils % % Lymphocytes % % Monocytes % % Eosinophils % % Basophils % % Neutrophils # (1.3-7.7) k/uL Lymphocytes # (1.0-4.8) k/uL Monocytes # (0-1.0) k/uL Eosinophils # (0-0.7) k/uL Basophils # (0-0.2) k/uL PT (10.0-12.5) sec INR (<1.2) APTT (22.0-30.0) sec Sodium (137-145) mmol/L Potassium (3.5-5.1) mmol/L Chloride (98-107) mmol/L Carbon Dioxide (22-30) mmol/L Anion Gap mmol/L BUN (9-20) mg/dL Creatinine (0.66-1.25) mg/dL Est GFR (CKD-EPI)AfAm (>60 ml/min/1.73 sqM) Est GFR (CKD-EPI)NonAf (>60 ml/min/1.73 sqM) Glucose (74-99) mg/dL Calcium (8.4-10.2) mg/dL Magnesium (1.6-2.3) mg/dL Total Bilirubin (0.2-1.3) mg/dL AST (17-59) U/L ALT (4-49) U/L Alkaline Phosphatase (38-126) U/L Troponin I 0.038 H* (0.000-0.034) ng/mL NT-Pro-B Natriuret Pep pg/mL Total Protein (6.3-8.2) g/dL Albumin (3.5-5.0) g/dL - EKG Data -: EKG Interpreted by Me EKG Comments: 12-lead Electrocardiogram Interpretation Note EKG was reviewed and interpreted by myself. 12-lead ECG performed at 1041 is interpreted by me as revealing normal sinus rhythm at a rate of 83 beats per minute. [place] is leftward deviated. OR interval is 176 ms, QRS duration is 94 ms, QTc is 414 ms.. There were diffuse T wave inversions and 1, aVL, as well as the precordial leads V4 through V6. This does appear acute.. R wave progression across the precordium was delayed. The T wave inversions are concerning for some degree of ischemia. Disposition Clinical Impression: Acute electrocardiography changes, Elevated troponin Disposition: LEFT AGAINST MEDICAL ADVICE Referrals: Antonio Bradshaw DO [Primary Care Provider] - 1-2 days Rosio Polo MD [STAFF PHYSICIAN] - 1-2 days Time of Disposition: 13:00
[2024-09-17] MEDS: ASPIRIN 81 MG PO STA (13:05)
[2024-09-17 13:12] VITALS: BP 167/116; PULSE 90; RESP 18; TEMP 98
[2024-09-17 13:19] LABS: NT-Pro-B-Type Natriuretic Pept 2330 pg/mL
== END 2024-09-17 13:16 | disposition left against medical advice (07) ==
LOC: EC 10:14
DX: R94.31 Abnormal electrocardiogram [ECG] [EKG] (principal); R79.89 Other specified abnormal findings of blood chemistry; Z53.29 Procedure and treatment not carried out because of patient's decision for other reasons
CPT/HCPCS: 36415; 71046; 80053; 83735; 83880; 84484; 85025; 85610; 85730; 93005; 99285